=== PATIENT | female | born 1995 | race Caucasian/White ===

== ENCOUNTER → 2017-09-12 10:46 | Outpatient (CLI) | payer SELFPAY ==
--- NOTE | 2017-09-12 11:03 | US_ITS ---
STUDY: ULTRASOUND GALLBLADDER REASON FOR VISIT: Female, 21 years old. Right upper quadrant pain. TECHNIQUE: Ultrasound evaluation of the gallbladder was performed with real-time and static magaña-scale imaging. TECHNICAL QUALITY: Adequate. COMPARISON: None. FINDINGS: Gallbladder: Normal distended gallbladder. The gallbladder wall measures 2.4 mm. There is a negative sonographic Woodruff's sign. There is no pericholecystic fluid. There are no gallstones. Common Bile Duct (C.B.D.): The common bile duct measures 3 mm. US/Gallbladder IMPRESSION: Normal gallbladder ultrasound examination. Electronically Signed: Shimon Gonzales MD at 17:59 EST , Service support ,
== END ==
PROVIDERS: Family Provider Family Medicine; PCP Family Medicine; Visit Provider Family Medicine
DX: R10.11 Right upper quadrant pain (principal)
CPT/HCPCS: 76705

== ENCOUNTER → 2017-10-04 12:12 | Outpatient (CLI) | payer SELFPAY ==
--- NOTE | 2017-10-04 12:22 | NM_ITS ---
CLINICAL: 21-year-old female with reported history of right upper quadrant abdominal pain. RADIONUCLIDE HEPATOBILIARY SCINTIGRAPHY COMPARISON: Ultrasound of the gallbladder report 09/12/2017 FINDINGS: Following the intravenous administration of 5.2 mCi of 99m Tc Mebrofenin, hepatobiliary images reveal: 1. Relatively prompt and homogeneous radiopharmaceutical concentration is noted by a normal sized liver. No parenchymal defects are identified. 2. Gallbladder activity is identified at 30 minutes post radiopharmaceutical administration. 3. Small intestinal tract is observed at 30 minutes following tracer injection. 4. Washout of the radiopharmaceutical by the hepatic parenchyma appears qualitatively normal. NM/Hepatobilliary Imaging IMPRESSION: 1. NORMAL 99m Tc Mebrofenin hepatobiliary imaging examination. A. Visualization of the gallbladder within 60 minutes post radiopharmaceutical administration excludes acute cholecystitis with 97% certitude. (Katja et al, Nucl Med Celeste [employer] Press pg. 35, 1981). B. Further evaluation of this individual may be undertaken utilizing CCK augmented hepatobiliary scintigraphy if clinically indicated. (Julia Hernandez al, J Nucl Med 32: 1695, 1990). Electronically Signed: Erik Qureshi DO at 14:30 EDT Tel , Service support ,
== END ==
PROVIDERS: Family Provider Family Medicine; PCP Family Medicine
DX: R10.11 Right upper quadrant pain (principal)
CPT/HCPCS: 78226; A9537